=== PATIENT | female | born 1990 | race Caucasian/White ===

== ENCOUNTER 2016-10-06 09:57 | Emergency (ER) | payer OTHER ==
[~2016-10-06] VITALS: Ht 152.4 cm; Wt 67.6 kg
[~2016-10-06 09:57] MED LIST: HYDR-906 PO; NAPR-260 PO
[2016-10-06 10:12] VITALS: Ht 152.4 cm; Wt 67.6 kg
[2016-10-06 11:47] LABS: ADD SCAN DIFF NO
[2016-10-06 11:48] LABS: ADD UMIC NO; URINE BILIRUBIN (Dip) NEGATIVE (NEGATIVE); URINE BLOOD (Dip) NEGATIVE (NEGATIVE); URINE COLOR LT. YELLOW (YELLOW); URINE GLUCOSE (Dip) NEGATIVE (NEGATIVE); URINE KETONES (Dip) NEGATIVE (NEGATIVE); URINE LEUKOCYTE ESTERASE (Dip) NEGATIVE (NEGATIVE); URINE NITRITE (Dip) NEGATIVE (NEGATIVE); URINE TOTAL PROTEIN (Dip) NEGATIVE (NEGATIVE); URINE UROBILINOGEN (Dip) 0.2 E.U./dL (0.1-1.0)
[2016-10-06 11:50] LABS: BASOPHILS % 0.3 % (0.0-2.0); EOSINOPHILS # 0.1 10^3/ul (0.0-0.5); EOSINOPHILS % 1.9 % (0.0-7.0); HEMATOCRIT 39.8 % (37.0-47.0); HEMOGLOBIN 13.3 g/dl (12.0-16.0); LYMPHOCYTES # 2.3 10^3/ul (0.8-2.9); LYMPHOCYTES % 35.2 % (15.0-51.0); MEAN CORPUSCULAR HEMOGLOBIN 29.8 pg (29.0-33.0); MEAN CORPUSCULAR HGB CONC 33.4 g/dl (32.0-37.0); MEAN PLATELET VOLUME 10.4 fl (7.4-10.4); MONOCYTE # 0.3 10^3/ul (0.3-0.9); MONOCYTES % 3.9 % (0.0-11.0); NEUTROPHIL # 3.8 10^3/ul (1.6-7.5); NEUTROPHILS % 58.5 % (39.0-77.0); PLATELET COUNT 290 10^3/UL (140-415); RED BLOOD COUNT 4.47 10^6/ul (4.20-5.40); RED CELL DISTRIBUTION WIDTH 13.2 % (11.5-14.5); WHITE BLOOD COUNT 6.5 10^3/ul (4.8-10.8)
[2016-10-06 11:59] LABS: ALBUMIN 4.2 g/dl (3.3-4.9)
[2016-10-06 12:00] LABS: POTASSIUM 3.9 mmol/L (3.5-5.1)
--- NOTE | 2016-10-06 12:01 | RADRPT ---
PROCEDURE: CT Abdomen and pelvis without contrast. CLINICAL INDICATION: Generalized abdominal pain TECHNIQUE: CT scan of the abdomen and pelvis without contrast was performed on a multidetector hig h-resolution CT scan. . Coronal and sagittal reformatted images were obtained from the [facility] e images. Standard CT scan of the abdomen pelvis without contrast protocols were performed. The total exam CTDI equals 9.08 mGy and the total exam DLP equals 512.67 mGy-cm. One or more of the following dose reduction techniques were used: - Automated exposure control. - Adjustment of the mA and/or kV according to patient size. Use of iterative reconstruction technique. COMPARISON: CT scan of the abdomen and pelvis 07/04/2016 FINDINGS: Again noted is a punctate 3 mm non-obstructing left inferior renal calculus. No other calcified lubna al calculi and no hydronephrosis bilaterally. The kidneys are normal in size without evidence of in tra renal masses. No calcified urinary calculi and distribution of either ureter. The uterus is an teflexed and anteverted compressing a contracted urinary bladder which is otherwise unremarkable. T he appendix is unremarkable. The stomach, small bowel and large bowel are unremarkable. The gallbl adder is unremarkable and there is no evidence of biliary ductal dilation. The liver spleen pancrea s adrenal glands are normal in size configuration without focal lesions. No evidence of intra-abdom inal free air free fluid or lymphadenopathy. The lung bases are unremarkable. The osseous structur es are unremarkable. The abdominal aorta is unremarkable. IMPRESSION: 1. Again noted is a 3 mm non-obstructing left inferior renal calculus. No other calcified urinary calculi or obstructive uropathy. 2. Unremarkable appendix. 3. No evidence of abdominal free air fluid abscesses or lymphadenopathy. RPTAT:AAJJ Physician Shun Date Time Electronically viewed and signed by Physician Shun on 10/06/2016 12:01 BM/
[2016-10-06 12:02] LABS: ALBUMIN/GLOBULIN RATIO 1.13; BILIRUBIN,INDIRECT 0.3 mg/dl (0-1.1); BILIRUBIN,TOTAL 0.3 mg/dl (0.2-1.3); CREATININE 0.72 mg/dl (0.44-1.00); TOTAL PROTEIN 7.9 g/dl (6.1-8.1)
[2016-10-06 12:03] LABS: CALCIUM 9.7 mg/dl (8.4-10.2)
--- NOTE | 2016-10-06 12:31 | RADRPT ---
PROCEDURE: US Pelvis CLINICAL INDICATION: Abdominal Pain TECHNIQUE: Multiple sonographic images of the pelvis were obtained utilizing a transabdominal and endovaginal technique. The images were reviewed on a PACS workstation. COMPARISON: Pelvic ultrasound from 07/04/2016 LMP: 10/03/2016 FINDINGS: The uterus measures 7.7 x 4.7 x 7.0 cm. The endometrial echo complex measures 6 mm in thickness. N o discrete lesion is seen. The right ovary measures 3.9 x 1.6 x 2.4 cm. The left ovary measures 3.5 x 1.6 x 2.3 cm. There is no rmal vascular flow in both ovaries. No significant ovarian lesions are seen. No significant pelvic free fluid is identified. IMPRESSION: Unremarkable pelvic ultrasound, as above. RPTAT: EE Physician Ronnie Date Time Electronically viewed and signed by Physician Ronnie on 10/06/2016 12:31 /
[2016-10-06] MEDS ORDERED: HYDR-906 PO (12:58)
[2016-10-06] MEDS ORDERED: NAPR-260 PO (12:58)
[2016-10-06 13:21] VITALS: BP 118/65; PULSE 74; RESP 19; TEMP 98.2
--- NOTE | 2016-10-06 15:46 | ERD ---
DATE OF SERVICE: HISTORY OF PRESENT ILLNESS: The patient is a 26-year-old female complaining of abdominal pain and v omiting. She states that she has had abdominal pain for the last 3 months. She states that she has been told she had a kidney stone. She states that the pain is constant. She has had no blood in h er stool, no vomiting. She has had normal urination. G7, P3, A4. PAST MEDICAL HISTORY: Denies medical problems. ALLERGIES: Denies allergies to medications. SURGICAL HISTORY: Transfusions and tubal ligation. SOCIAL HISTORY: Smokes 5 cigarettes a day. REVIEW OF SYSTEMS: A 12-point review of systems was done. Refer to the HPI for positives, all othe r systems are negative. PHYSICAL EXAMINATION: VITAL SIGNS: Temperature is 98.6, pulse 77, blood pressure is 117/74, respiratory rate 16, O2 satur ation 99% on room air. Pain intensity is 8/10. GENERAL: The patient is well-appearing, well-nourished, in no acute distress. HEENT: Atraumatic. Conjunctivae are pink. Pupils equal, round, and reactive to light. There is no s cleral icterus. Tympanic membranes clear bilaterally. Oropharynx clear. No nystagmus or photophobia . CHEST: Clear to auscultation bilaterally. There are no rales, wheezes or rhonchi. HEART: Regular rate and rhythm. No murmurs, clicks, rubs or gallops. No S3 or S4. ABDOMEN: Soft, nontender and nondistended. Good bowel sounds. No rebound or guarding. No gross villa tonitis. No gross organomegaly or masses. No Arroyo sign or McBurney point tenderness. BACK: No midline or flank tenderness. SKIN: There is no apparent rash or petechia. The skin is warm and dry. EMERGENCY ROOM COURSE: The patient blood work done in the ER. CBC was within normal limits. CMP w as within normal limits. The patient's urine was negative. Patient had a pelvic ultrasound which s howed an unremarkable pelvic ultrasound. Patient had a CT abdomen and pelvis without contrast which showed: 1) A 3-mm nonobstructing inferior renal calculus. No other calcified urinary calculi or ob structive uropathy. 2) Unremarkable appendix. 3) No evidence of abdominal free air fluid, abscess or lymphadenopathy. DIAGNOSIS: Kidney stone. MEDICAL DECISION MAKING: The patient's BUN and creatinine are within normal limits. The patient's urine is within normal limits. The patient's kidney stones do not appear to be obstructive, so I do not feel there is indication for admission at this time. I have a low suspicion for other acute abd ominal emergencies including, but not limited to, SBO, choledocholithiasis, cholecystitis, cholangit is, pancreatitis, appendicitis, or a pelvic the emergency room including tubo-ovarian abscess, ectop ic or ovarian torsion. DISCHARGE: The patient was discharged stable. Patient was given a prescription for naproxen and No rco and told to follow up with her primary care within 1 to 2 days for reevaluation. The patient was told if symptoms progress or worsen, to return to the ER. All other questions were answered at the time of discharge. Discharge summary was given at the time of departure. Patient understood and c omplied with the plan. Dictated By: JAVI SINGH PA for ASIM ELLIOTT/ADDISON Conf#: [id number] DID#: [id number]
== END 2016-10-06 13:22 | disposition home or self-care (01) ==
LOC: FTE 09:57
DX: N20.0 Calculus of kidney (principal); F17.210 Nicotine dependence, cigarettes, uncomplicated
CPT/HCPCS: 36415; 74176; 76856; 80053; 81003; 83690; 85025; Z7502